=== PATIENT | female | born 1970 | race African-American/Black ===

== ENCOUNTER 2017-04-28 17:38 | Emergency (ER) | payer MEDICAID, OTHER ==
[~2017-04-28] VITALS: Ht 162.6 cm; Wt 124.0 kg
[~2017-04-28 17:38] MED LIST: AMLODIPINE; LOSARTAN
[2017-04-28 17:48] VITALS: BP 144/92
== END 2017-04-28 21:00 | disposition left against medical advice (07) ==
LOC: ER 20:53
DX: Z53.21 Procedure and treatment not carried out due to patient leaving prior to being seen by health care provider (principal)
CPT/HCPCS: 93005